=== PATIENT | female | born 1950 | race Hispanic/Latino ===

== ENCOUNTER 2018-09-07 04:01 | Emergency (ER) | payer MEDICARE ==
[2018-09-07] MEDS ORDERED: DILAUDID IV ONE (04:33)
[2018-09-07] MEDS ORDERED: DILAUDID IM ONE (05:31)
--- NOTE | 2018-09-07 05:44 | Emergency Department Report ---
HPI - General Chief Complaint: Extremity Problem,Nontraumatic Time Seen by Provider: 09/07/18 04:33 - HPI HPI: 68-year-old female presents to the emergency department with a complaint of chronic bilateral lower extremity pain and asking for a medication refill of her narcotic pain medication. Patient says that she has some bilateral hip pain that radiates down her legs. She says that she has been worked up by many different doctors in many different specialties and no one can give her a definitive diagnosis as to why she has this chronic pain that she has been dealing with it for 16 years. She follows with Dr. Tirado, neurologist, who manages her pain medication. Patient says that her accidentally threw out the plastic bag that had her medications, specifically the 30 mg oxycodone. She denies any recent trauma or falls. She says that this is the same pain that she has had chronically but has been worse recently since she does not have the oxycodone. No skin color change, swelling. The patient ambulates with a cane. ED Past Medical Hx - Past Medical History Additional medical history: chronic BLE,. GALLSTONE. UTERINE PROLAPSE - Surgical History Past Surgical History?: Yes Additional Surgical History: 2013 PERFORATED ULCER. 2018 RECTOCELE - Social History Smoking Status: Never Smoker Substance Use Type: None ED Review of Systems ROS: Stated complaint: BILATERAL LEG PAIN Other details as noted in HPI Comment: All other systems reviewed and negative Constitutional: denies: chills, fever Eyes: denies: eye pain, vision change ENT: denies: ear pain, throat pain Respiratory: denies: cough, shortness of breath Cardiovascular: denies: chest pain, edema Gastrointestinal: denies: abdominal pain, vomiting Genitourinary: denies: dysuria, discharge Musculoskeletal: arthralgia, myalgia. denies: joint swelling Skin: denies: rash, lesions Neurological: denies: headache, numbness Physical Exam - Physical Exam Vital Signs: Vital Signs 09/07/18 09/07/18 04:03 04:46 Temperature 97.8 F Pulse Rate 94 H Respiratory 20 18 Rate Blood Pressure 114/84 O2 Sat by Pulse 97 98 Oximetry Physical Exam: GENERAL: The patient is well-developed well-nourished. HENT: Normocephalic. Atraumatic. Patient has moist mucous membranes. EYES: Extraocular motions are intact. NECK: Supple. Trachea is midline. CHEST/LUNGS: Clear to auscultation. There is no respiratory distress noted. HEART/CARDIOVASCULAR: Regular. There is no tachycardia. There is no murmur. ABDOMEN: Abdomen is soft, nontender. Patient has normal bowel sounds. There is no abdominal distention. SKIN: Skin is warm and dry. NEURO: The patient is awake, alert, and oriented. The patient is cooperative. The patient has no focal neurologic deficits. The patient has normal speech. MUSCULOSKELETAL: Unable to reproduce tenderness to palpation to the lower extremities. There is no limitation range of motion. There is no evidence of acute injury. ED Course Vital Signs 09/07/18 09/07/18 04:03 04:46 Temperature 97.8 F Pulse Rate 94 H Respiratory 20 18 Rate Blood Pressure 114/84 O2 Sat by Pulse 97 98 Oximetry ED Medical Decision Making - Medical Decision Making This patient presents to the emergency department with acute on chronic lower extremity pain medicine going on for 16 years. However the patient is here for a medication refill as her oxycodone 30 mg pills were accidentally thrown out. On top of that, patient appears to have previous prescriptions in the last month for tramadol, Percocet and Edwall the patient says that is just for breakthrough pain. The patient says that her neurologist, who is her pain management physician, is not willing to write any more pain medication for her until Monday. I did look her up on the [facility] prescription monitoring system and the patient does feel a very large amount of narcotic pain medication. She always gets it from the same provider and goes to the same pharmacy, but I am uncomfortable writing a prescription for narcotic pain medication since she has a pain management physician, whom she says also will not write for anything until Monday. The patient was given 2 doses of IM pain medication within the emergency department with some improvement of her discomfort. The patient was seen ambulatory in the emergency department and appears stable. She has been instructed to return to the emergency department for further evaluation for any return or worsening of her symptoms. Critical Care Time: No Critical care attestation.: If time is entered above; I have spent that time in minutes in the direct care of this critically ill patient, excluding procedure time. ED Disposition Clinical Impression: Bilateral leg pain Chronic pain Qualifiers: Chronic pain type: chronic pain syndrome Qualified Code(s): G89.4 - Chronic pain syndrome Disposition: TO HOME OR SELFCARE Is pt being admited?: No Condition: Stable Instructions: Arthralgia (ED) Additional Instructions: Please follow up with Dr. Tirado regarding your chronic hip and leg pains and your need for a medication refill. Return to the emergency Department with any worsening of your symptoms or with any acute distress. Referrals: JOHANN TIRADO MD [Staff Physician] - [facility] Time of Disposition: 06:03
[2018-09-07 06:37] VITALS: BP 119/80
== END 2018-09-07 06:00 | disposition home or self-care (01) ==
LOC: ED 04:01
DX: M79.605 Pain in left leg (principal); M79.604 Pain in right leg; G89.29 Other chronic pain; Z88.1 Allergy status to other antibiotic agents; Z88.6 Allergy status to analgesic agent; Z88.8 Allergy status to other drugs, medicaments and biological substances
CPT/HCPCS: 96372; 96374; 99282; J1170

== ENCOUNTER 2018-09-07 20:36 | Emergency (ER) | payer MEDICARE, OTHER ==
--- NOTE | 2018-09-07 20:43 | Event Note ---
ED Screening Note ED Screening Note: A/C LEG PAIN SEE LAST PM NOTE PT STATES SHE WAS TOLD TO COME BACK IF PAIN DIDNT GET ANY BETTER This initial assessment/diagnostic orders/clinical plan/treatment(s) is/are subject to change based on patients health status, clinical progression and re- assessment by fellow clinical providers in the ED. Further treatment and workup at subsequent clinical providers discretion. Patient/guardian urged not to elope from the ED as their condition may be serious if not clinically assessed and managed. Initial orders include:
[2018-09-07] MEDS ORDERED: DILAUDID IM ONE ×2 (23:04→23:46)
[2018-09-07] MEDS ORDERED: TORADOL IM ONE (23:04)
--- NOTE | 2018-09-07 23:54 | Emergency Department Report ---
HPI - General Chief Complaint: Extremity Injury, Lower Time Seen by Provider: 09/07/18 20:41 - HPI HPI: This is a 68-year-old female who presents to the emergency department with complaint of acute on chronic bilateral hip and leg pain. She is well- known to me as I saw this patient for the same complaints last night/early this morning. The patient follows with her neurologist for her pain medications, Dr Valle. The patient says that her accidentally threw away her narcotic pain medications and she is unable to fill the oxycodone until Monday for insurance reasons. She also has an appointment with the neurologist on . She says that she has had multiple specialty visits, different imaging modalities in the past, but no one can come up with a definitive diagnosis for her chronic pains. She walks with a cane but is walking at her baseline status. No recent travel. She denies any swelling, skin color change. ED Past Medical Hx - Past Medical History Previous Medical History?: Yes Additional medical history: chronic BLE,. GALLSTONE. UTERINE PROLAPSE - Surgical History Past Surgical History?: Yes Additional Surgical History: 2013 PERFORATED ULCER. 2018 RECTOCELE - Social History Smoking Status: Never Smoker Substance Use Type: None - Medications Home Medications: Home Medications Medication Instructions Recorded Confirmed Last Taken Type Ketorolac [Toradol] 10 mg PO Q8H PRN #12 tablet 09/08/18 Unknown Rx ED Review of Systems ROS: Stated complaint: BILATERAL LEG PAIN Other details as noted in HPI Comment: All other systems reviewed and negative Constitutional: denies: chills, fever Eyes: denies: eye pain, vision change ENT: denies: ear pain, throat pain Respiratory: denies: cough, shortness of breath Cardiovascular: denies: chest pain, palpitations Gastrointestinal: denies: abdominal pain, vomiting Genitourinary: denies: dysuria, discharge Musculoskeletal: arthralgia, myalgia. denies: back pain Skin: denies: rash, change in color Neurological: denies: headache, numbness Physical Exam - Physical Exam Vital Signs: Vital Signs 09/07/18 20:52 Temperature 98.7 F Pulse Rate 122 H Respiratory 16 Rate Blood Pressure 144/99 O2 Sat by Pulse 97 Oximetry Physical Exam: GENERAL: The patient is well-developed well-nourished. HENT: Normocephalic. Atraumatic. Patient has moist mucous membranes. EYES: Extraocular motions are intact. NECK: Supple. Trachea is midline. CHEST/LUNGS: Clear to auscultation. There is no respiratory distress noted. HEART/CARDIOVASCULAR: Regular. There is no tachycardia. There is no murmur. ABDOMEN: There is no abdominal distention. SKIN: Skin is warm and dry. NEURO: The patient is awake, alert, and oriented. The patient is cooperative. The patient has no focal neurologic deficits. The patient has normal speech. MUSCULOSKELETAL: Unable to reproduce hip and leg pain to palpation. No obvious deformities. There is no limitation range of motion. There is no evidence of acute injury. ED Course Vital Signs 09/07/18 20:52 Temperature 98.7 F Pulse Rate 122 H Respiratory 16 Rate Blood Pressure 144/99 O2 Sat by Pulse 97 Oximetry ED Medical Decision Making - Lab Data Result diagrams: 09/08/18 00:11 09/08/18 00:11 - Medical Decision Making This patient returned with the complaint of her chronic bilateral hip and leg pains. Labs were unremarkable including CBC and metabolic panel. Patient was given a few doses of pain medication including NSAIDs. She was seen ambulatory in the emergency department and appears stable. She continues to reiterate that these are the same chronic pains that she always has and there has been no recent trauma or falls. She will be given a prescription for Toradol to assist her over the weekend with her discomfort until she is able to see her neurologist/pain physician on Monday. She will return to the ER with any worsening of her symptoms or any acute distress. - Differential Diagnosis peripheral neuropathy, sciatica, fibromyalgia Critical Care Time: No Critical care attestation.: If time is entered above; I have spent that time in minutes in the direct care of this critically ill patient, excluding procedure time. ED Disposition Clinical Impression: Bilateral leg pain Chronic pain Qualifiers: Chronic pain type: chronic pain syndrome Qualified Code(s): G89.4 - Chronic pain syndrome Disposition: TO HOME OR SELFCARE Is pt being admited?: No Condition: Stable Instructions: Musculoskeletal Pain (ED), Arthralgia (ED) Additional Instructions: Please follow-up with your primary care physician and neurologist in the next few days. Return to the emergency Department with any worsening of your symptoms or any acute distress. Prescriptions: Ketorolac [Toradol] 10 mg PO Q8H PRN #12 tablet PRN Reason: Pain Referrals: JOHANN GIRON MD [Staff Physician] - 2-3 Days Time of Disposition: 01:17
[2018-09-08 00:42] LABS: Basophils % (Auto) 0.5 % (0.0-1.8); Eosinophils # (Auto) 0.2 K/mm3 (0.0-0.4); Eosinophils % (Auto) 3.8 % (0.0-4.3); Hematocrit 33.1 % (30.3-42.9); Hemoglobin 11.4 gm/dl (10.1-14.3); Lymphocytes # (Auto) 0.9 K/mm3 (1.2-5.4); Lymphocytes % (Auto) 21.8 % (13.4-35.0); Mean Corpuscular HGB Conc 35 % (30-34); Mean Corpuscular Volume 83 fl (79-97); Monocytes # (Auto) 0.4 K/mm3 (0.0-0.8); Monocytes % (Auto) 9.6 % (0.0-7.3); Platelet Count 128 K/mm3 (140-440); Red Blood Count 4.01 M/mm3 (3.65-5.03); Red Cell Distribution Width 15.4 % (13.2-15.2)
[2018-09-08 01:09] LABS: BUN/Creatinine Ratio 23; Blood Urea Nitrogen 18 mg/dL (7-17); Calcium 9.2 mg/dL (8.4-10.2); Hemolysis Index 9
[2018-09-08 01:22] VITALS: BP 141/81
== END 2018-09-08 01:22 | disposition home or self-care (01) ==
LOC: ED 20:36
DX: G89.29 Other chronic pain (principal); M79.605 Pain in left leg; M79.604 Pain in right leg; Z79.899 Other long term (current) drug therapy; Z88.1 Allergy status to other antibiotic agents; Z88.8 Allergy status to other drugs, medicaments and biological substances; Z98.890 Other specified postprocedural states
CPT/HCPCS: 36415; 80048; 85025; 96372; 99283; J1170; J1885; 96374; 99282